=== PATIENT | male | born 1975 | race Caucasian/White ===

== ENCOUNTER 2016-07-19 16:28 | Emergency (ER) | payer OTHER ==
[~2016-07-19] VITALS: Ht 170.2 cm; Wt 83.1 kg
[~2016-07-19 16:28] MED LIST: ADVIN10/60 INH; ALBU1AER9 INH; CIPR-255 PO; DOXY100C2 PO; LXP10 PO; OMEP10CA2 PO; PHEN-1043 PO
[2016-07-19 16:42] VITALS: TEMP 36.9; Ht 170.2 cm; Wt 83.1 kg
[2016-07-19] MEDS ORDERED: SODIUM CHLORIDE 0.9% 1000ML 1,000 ML IV STA (16:59)
[2016-07-19] MEDS ORDERED: ONDANSETRON INJ 2 MG/ML 2 ML VIAL IV STA (16:59)
[2016-07-19] MEDS ORDERED: BSP/5 PO (17:11)
[2016-07-19] MEDS ORDERED: MTR500 PO (17:11)
[2016-07-19] MEDS ORDERED: OMEP40CA41 PO (17:11)
[2016-07-19] MEDS ORDERED: TADA5TAB11 PO (17:11)
[2016-07-19 17:15] LABS: MANUAL MICROSCOPIC REQUIRED? YES; URINE APPEARANCE CLEAR (CLEAR); URINE BILIRUBIN NEG (NEG); URINE COLOR YELLOW; URINE NITRITE NEG (NEG); URINE SPECIFIC GRAVITY >= 1.030 (1.000-1.030); UROBILINOGEN NEG (NEG)
[2016-07-19 17:15] LABS: BASO % 0.5 %; BASO ABS # 0.04 K/uL (0-0.2); COMPLETE YES; EOS % 0.9 %; HEMATOCRIT 44.4 % (42-52); IG% 0.5 %; LYMPH % 25.1 %; LYMPH ABS # 2.14 K/uL (1.2-3.4); MEAN CELL VOLUME 90.2 fL (80-100); MEAN CORPUSCULAR HEMOGLOBIN 31.5 pg (25-34); MEAN CORPUSCULAR HGB CONC 34.9 g/dl (32-36); MEAN PLATELET VOLUME 11.8 fL (7.4-10.4); MONO % 14.7 %; NEUT % 58.3 %; PLATELET COUNT 222 K/uL (130-400); RED BLOOD COUNT 4.92 M/uL (4.7-6.1); WHITE BLOOD COUNT 8.52 K/uL (4.8-10.8)
[2016-07-19 17:17] LABS: REVIEW REQ? NO
[2016-07-19 17:22] LABS: URINE BACTERIA NEG (NEG); URINE RBC 0-4 /hpf (0-4)
[2016-07-19 17:23] LABS: ZZUR CULT IF INDIC CLEAN CATCH NO
[2016-07-19 17:33] LABS: BUN/CREATININE RATIO 12.9 (10-20); CALCIUM 9.2 mg/dl (8.5-10.1); CREATININE 1.1 mg/dl (0.60-1.40); POTASSIUM 3.7 mmol/L (3.5-5.1)
[2016-07-19] MEDS ORDERED: OPTIRAY 320 IV PRN (19:15)
--- NOTE | 2016-07-19 20:30 | DIAGNOSTIC IMAGING REPORT ---
CT OF THE ABDOMEN AND PELVIS WITH CONTRAST CLINICAL HISTORY: Right lower quadrant abdominal pain. COMPARISON STUDY: CT of the abdomen and pelvis October 18, 2012 TECHNIQUE: Following IV administration of 116 mL of Optiray-320, axial images of the abdomen and pelvis were obtained from the lung bases to the proximal femurs. Images were reviewed in the axial, sagittal, and coronal planes. IV contrast was administered without complication. Oral contrast was administered. CT DOSE: 423.99 mGy.cm FINDINGS: Lung bases are clear. The liver, spleen, adrenal glands, kidneys and pancreas are normal. There is no biliary or pancreatic ductal dilatation. There is no evidence for a bowel obstruction. The appendix is normal. There are scattered colonic diverticula. There is suspected minimal infiltration adjacent to the distal sigmoid colon. There is no free air or abscess. IMPRESSION: 1. Normal appendix. 2. Possible minimal infiltration adjacent to the distal sigmoid colon with scattered colonic diverticula. The findings could reflect mild acute diverticulitis or a mild nonspecific colitis. No free air or abscess. Electronically signed by: Rosalio Drew M.D. 07/19/2016 8:28 PM Dictated Date/Time: 07/19/2016 8:20 PM
[2016-07-19 21:09] VITALS: BP 126/79; PULSE 62; O2SAT 99
--- NOTE | 2016-07-19 21:35 | EMERGENCY ROOM VISIT NOTE ---
History Report prepared by Sebastián: Andre Mcmahon Under the Supervision of: Dr. James Arenas D.O. First contact with patient: 16:45 Chief Complaint: ABDOMINAL PAIN Stated Complaint: PAIN IN SIDE Nursing Triage Summary: Pt reports RLQ pain. Pt started on Wed on the left. Seen at PCP on Wed or and given Cipro and Flagyl for ? Diverticulitis. Intermittent pain into right testicle. Generalized back pain. Denies n/v/d. Hx of kidney stones, does not feel similar. History of Present Illness The patient is a 40 year old male who presents to the Emergency Room with complaints of constant right sided abdominal pain beginning one day prior to arrival. He currently rates his discomfort as a 5/10 in severity. The patient associates abdominal pain that radiates to his back and intermittently once or twice into his right testicular. He states he was seen by a doctor four days ago with left sided abdominal pain and was diagnosed with diverticulitis. The patient notes he was placed on Cipro and Flagyl but his symptoms have no resolved. He states he is no longer experiencing left sided abdominal pain, but the discomfort as moved to the right side of his abdomen one day ago. The patient denies having imaging performed to diagnose his diverticulitis. He notes his last bowel movement was this morning, and it was normal. The patient notes a history of IBS but denies today's symptoms feeling similar to his IBS symptoms. He denies a history of abdominal surgeries, Crohn's Disease, and ulcerative colitis. Pt denies headache, change in vision, fevers, chest pain, shortness of breath, nausea, vomiting, diarrhea, pain with urination, penile discharge, testicular swelling, and melena. Source of History: patient Onset: one day [employer] Position: abdomen (right sided) Symptom Intensity: 5/10 Timing: constant Associated Symptoms: + back pain (abdominal pain that radiates to back) Note: Associated symptoms: intermittent right testicular pain. Review of Systems See HPI for pertinent positives & negatives. A total of 10 systems reviewed and were otherwise negative. Past Medical & Surgical Medical Problems: (1) Asthma (2) Kidney stones Family History Diabetes mellitus FH: cancer Hypertension Social History Smoking Status: Never Smoker Alcohol Use: none Marital Status: Housing Status: lives with family Occupation Status: employed Current/Historical Medications Scheduled Buspirone HCl (Buspirone HCl), 5 MG PO BID Ciprofloxacin Hcl (Cipro), 500 MG PO BID Metronidazole (Metronidazole), 500 MG PO BID Omeprazole (Prilosec), 40 MG PO DAILY Tadalafil (Cialis), 5 MG PO DAILY Scheduled PRN Albuterol Hfa (Ventolin Hfa), 2 PUFFS INH Q6 PRN for Shortness of Breath Allergies Coded Allergies: Naproxen (Verified Adverse Reaction, Unknown, Nausea., 07/19/16) Physical Exam Vital Signs Date Time Temp Pulse Resp B/P Pulse Ox O2 Delivery O2 Flow Rate FiO2 07/19/16 21:09 62 126/79 99 07/19/16 16:42 36.9 81 18 139/98 97 Room Air Physical Exam GENERAL: sitting up in bed, no acute distress, non-toxic EYE EXAM: normal conjunctiva OROPHARYNX: no exudate, no erythema, lips, buccal mucosa, and tongue normal and mucous membranes are moist NECK: supple, no nuchal rigidity, no adenopathy, non-tender LUNGS: Clear to auscultation. Normal chest wall mechanics HEART: no murmurs, S1 normal and S2 normal ABDOMEN: Minimal tenderness in right lower quadrant. Abdomen soft, normo-active bowel sounds, no masses, no rebound or guarding. BACK: Back is symmetrical on inspection and there is no deformity, no midline tenderness, no CVA tenderness. : Normal external circumcised genitalia. Testicles are nontender. No swelling. No appreciable hernias. SKIN: no rashes and no bruising UPPER EXTREMITIES: upper extremities are grossly normal. LOWER EXTREMITIES: No pitting edema. NEURO EXAM: Normal sensorium, cranial nerves II-XII grossly intact, normal speech, no gross weakness of arms, no gross weakness of legs. Medical Decision & Procedures ER Provider Diagnostic Interpretation: CT:Per my review, radiologist interpretation. CT OF THE ABDOMEN AND PELVIS WITH CONTRAST CLINICAL HISTORY: Right lower quadrant abdominal pain. COMPARISON STUDY: CT of the abdomen and pelvis October 18, 2012 TECHNIQUE: Following IV administration of 116 mL of Optiray-320, axial images of the abdomen and pelvis were obtained from the lung bases to the proximal femurs. Images were reviewed in the axial, sagittal, and coronal planes. IV contrast was administered without complication. Oral contrast was administered. CT DOSE: 423.99 mGy.cm FINDINGS: Lung bases are clear. The liver, spleen, adrenal glands, kidneys and pancreas are normal. There is no biliary or pancreatic ductal dilatation. There is no evidence for a bowel obstruction. The appendix is normal. There are scattered colonic diverticula. There is suspected minimal infiltration adjacent to the distal sigmoid colon. There is no free air or abscess. IMPRESSION: 1. Normal appendix. 2. Possible minimal infiltration adjacent to the distal sigmoid colon with scattered colonic diverticula. The findings could reflect mild acute diverticulitis or a mild nonspecific colitis. No free air or abscess. Electronically signed by: Rosalio Drew M.D. 07/19/2016 8:28 PM Laboratory Results 07/19/16 16:52 Red Blood Count 4.92, Mean Corpuscular Volume 90.2, Mean Corpuscular Hemoglobin 31.5, Mean Corpuscular Hemoglobin Concent 34.9, Mean Platelet Volume 11.8, Neutrophils (%) (Auto) 58.3, Lymphocytes (%) (Auto) 25.1, Monocytes (%) (Auto) 14.7, Eosinophils (%) (Auto) 0.9, Basophils (%) (Auto) 0.5, Neutrophils # (Auto ) 4.97, Lymphocytes # (Auto) 2.14, Monocytes # (Auto) 1.25, Eosinophils # (Auto ) 0.08, Basophils # (Auto) 0.04 07/19/16 16:52 Test 07/19/16 16:50 07/19/16 16:52 Urine Color YELLOW Urine Appearance CLEAR (CLEAR) Urine pH 5.0 (4.5-7.5) Urine Specific [place] >= 1.030 (1.000-1.030) Urine Protein TRACE (NEG) Urine Glucose (UA) NEG (NEG) Urine Ketones NEG (NEG) Urine Occult Blood NEG (NEG) Urine Nitrite NEG (NEG) Urine Bilirubin NEG (NEG) Urine Urobilinogen NEG (NEG) Urine Leukocyte Esterase NEG (NEG) Urine RBC 0-4 /hpf (0-4) Urine WBC 1-5 /hpf (0-5) Urine Epithelial Cells 10-20 /lpf (0-5) Urine Bacteria NEG (NEG) White Blood Count 8.52 K/uL (4.8-10.8) Red Blood Count 4.92 M/uL (4.7-6.1) Hemoglobin 15.5 g/dL (14.0-18.0) Hematocrit 44.4 % (42-52) Mean Corpuscular Volume 90.2 fL (80-100) Mean Corpuscular Hemoglobin 31.5 pg (25-34) Mean Corpuscular Hemoglobin Concent 34.9 g/dl (32-36) Platelet Count 222 K/uL (130-400) Mean Platelet Volume 11.8 fL (7.4-10.4) Neutrophils (%) (Auto) 58.3 % Lymphocytes (%) (Auto) 25.1 % Monocytes (%) (Auto) 14.7 % Eosinophils (%) (Auto) 0.9 % Basophils (%) (Auto) 0.5 % Neutrophils # (Auto) 4.97 K/uL (1.4-6.5) Lymphocytes # (Auto) 2.14 K/uL (1.2-3.4) Monocytes # (Auto) 1.25 K/uL (0.11-0.59) Eosinophils # (Auto) 0.08 K/uL (0-0.5) Basophils # (Auto) 0.04 K/uL (0-0.2) RDW Standard Deviation 44.5 fL (36.4-46.3) RDW Coefficient of Variation 13.4 % (11.5-14.5) Immature Granulocyte % (Auto) 0.5 % Immature Granulocyte # (Auto) 0.04 K/uL (0.00-0.02) Anion Gap 12.0 mmol/L (3-11) Est Creatinine Clear Calc Drug Dose 93.0 ml/min Estimated GFR () 97.5 Estimated GFR (Non- 84.1 BUN/Creatinine Ratio 12.9 (10-20) Calcium Level 9.2 mg/dl (8.5-10.1) Total Bilirubin 0.6 mg/dl (0.2-1) Direct Bilirubin 0.1 mg/dl (0-0.2) Aspartate Amino Transf (AST/SGOT) 39 U/L (15-37) Alanine Aminotransferase (ALT/SGPT) 54 U/L (12-78) Alkaline Phosphatase 94 U/L (45-117) Total Protein 8.4 gm/dl (6.4-8.2) Albumin 4.3 gm/dl (3.4-5.0) Lipase 201 U/L (73-393) Laboratory results per my review. Medications Administered Medications (Trade) Dose Ordered Sig/Ramírez Route Start Time Stop Time Status Last Admin Dose Admin Sodium Chloride (Nss 1000ml) 1,000 ml @ 999 mls/hr Q1H1M STAT IV 07/19/16 16:59 07/19/16 17:59 DC 07/19/16 17:07 999 MLS/HR Ondansetron HCl (Zofran Inj) 4 mg NOW STAT IV 07/19/16 16:59 07/19/16 17:00 DC 07/19/16 17:07 4 MG ED Course ED COURSE: Vital signs were reviewed and showed normal vitals. The patients medical record was reviewed The above diagnostic studies were performed and reviewed. ED treatments and interventions as stated above. 1650: The patient was evaluated in room C10. A complete history and physical examination was performed. 1658: Ordered Zofran Inj 4 mg IV, Sodium Chloride 1,000 ml @ 999 mls/hr IV. 2100: Upon reevaluation, the patient is doing well.I discussed my findings with the patient and he understands and agrees with the treatment plan. Based on the patients age, coexisting illnesses, exam and lab findings the decision to treat as an outpatient was made. The patient remained stable while under my care. The patient appeared well at the time of discharge. Medical Decision Differential diagnoses includes but is not limited to gastritis, peptic ulcer disease, GERD, gallbladder disease, pancreatitis, small bowel obstruction, acute coronary syndrome, pericarditis, ischemic bowel, irritable bowel disease, irritable bowel syndrome, appendicitis, diverticulitis, malignancy, hernia, urinary tract infection, torsion, perforation, trauma, infectious. Patient is a 40-year-old male who presents the ER with diffuse abdominal pain. He notes that it started in his left lower quadrant several days ago and now has moved to the right lower quadrant. At that time his diagnosis the family practice office called it diverticulitis. He was started on Cipro and Flagyl. He has taken a total of 4 days worth of antibiotics. Denies any nausea or vomiting. exam is benign. His abdominal exam is fairly benign as well. He declined any pain medications. He is given a bolus normal saline. CT of the abdomen and pelvis shows mild inflammation in the sigmoid suggesting possible resolving diverticulitis versus colitis. Updated the patient at bedside. Labs : CBC, BMP, LFTs and bilirubin were unremarkable. UA was negative. Patient was updated and was discharged follow-up with his primary care doctor and continue his antibiotics. Discussed with Pt concerning signs and symptoms to watch out for. Pt was instructed to follow up with their PCP and discussed with the patient their option to return to the ED at anytime for persistent or worsening symptoms. The appropriate anticipatory guidance and out-patient management, including indications for return to the emergency department, were explained at length to the patient and understood. Impression Primary Impression: Diverticulitis Additional Impression: Generalized abdominal pain Scribe Attestation The scribe's documentation has been prepared under my direction and personally reviewed by me in its entirety. I confirm that the note above accurately reflects all work, treatment, procedures, and medical decision making performed by me. Departure Information Dispostion Home / Self-Care Referrals Sunday Lauren III, M.D. (PCP) Forms Call Back Authorization, HOME CARE DOCUMENTATION FORM, IMPORTANT VISIT INFORMATION Patient Instructions ED Diverticulitis, [facility] Additional Instructions Please follow up with your primary care doctor with in the next 24 hours. Any worsening of your symptoms, please return to the ED immediately. This includes any fevers greater than 100.4, persistent nausea vomiting, worsening abdominal pain, or any other concerning signs or symptoms from your standpoint. Please continue your antibiotics as previously prescribed. Problem Qualifiers Primary Impression: Diverticulitis Diverticulitis site: large intestine Diverticulitis bleeding: without bleeding Diverticulitis complication: without perforation or abscess Qualified Codes: K57.32 - Diverticulitis of large intestine without perforation or abscess without bleeding
== END 2016-07-19 21:09 | disposition home or self-care (01) ==
LOC: C.EDB 16:29 → C.EDC 21:09
DX: K57.32 Diverticulitis of large intestine without perforation or abscess without bleeding (principal); R10.84 Generalized abdominal pain; J45.909 Unspecified asthma, uncomplicated; Z87.442 Personal history of urinary calculi; Z79.899 Other long term (current) drug therapy

== ENCOUNTER 2016-08-12 15:53 | Emergency (ER) | payer OTHER ==
[~2016-08-12] VITALS: Ht 170.2 cm; Wt 82.9 kg
[~2016-08-12 15:53] MED LIST changes: -ADVIN10/60 INH; -ALBU1AER9 INH; +BSP/5 PO; -DOXY100C2 PO; -LXP10 PO; +MTR500 PO; -OMEP10CA2 PO; +OMEP40CA41 PO; -PHEN-1043 PO; +TADA5TAB11 PO
[2016-08-12 15:56] VITALS: TEMP 36.9; Ht 170.2 cm; Wt 82.9 kg
[2016-08-12 16:23] LABS: BASO % 0.6 %; BASO ABS # 0.04 K/uL (0-0.2); COMPLETE YES; HEMATOCRIT 43.2 % (42-52); IG% 0.2 %; LYMPH % 39.1 %; LYMPH ABS # 2.41 K/uL (1.2-3.4); MEAN CELL VOLUME 87.4 fL (80-100); MEAN CORPUSCULAR HGB CONC 35.4 g/dl (32-36); MEAN PLATELET VOLUME 11.2 fL (7.4-10.4); MONO % 11.4 %; NEUT % 47.7 %; PLATELET COUNT 181 K/uL (130-400); RED BLOOD COUNT 4.94 M/uL (4.7-6.1); WHITE BLOOD COUNT 6.16 K/uL (4.8-10.8)
--- NOTE | 2016-08-12 16:30 | EMERGENCY ROOM VISIT NOTE ---
History First contact with patient: 16:01 Chief Complaint: CHEST PAIN Stated Complaint: CHEST PAIN, BANERJEE History of Present Illness The patient is a 40 year old male who presents to the Emergency Room with complaints of chest pain. The patient states that last night he felt pain in the Center of his chest. He states he was diaphoretic. He states he has had headache. He states the chest pain persists. He states he also has a headache. He rates his discomfort a 3/10. He denies any fevers or chills. He denies any abdominal pain, nausea or vomiting. He was recently seen here for diverticulitis. He has finished his course of Cipro and Flagyl. He denies any history of coronary artery disease. Review of Systems A 10 system review of systems was completed with positives and pertinent negatives listed in the HPI. Past Medical/Surgical History Medical Problems: (1) Asthma (2) Kidney stones Family History Diabetes mellitus FH: cancer Hypertension Social History Smoking Status: Never Smoker Alcohol Use: none Marital Status: Housing Status: lives with family Occupation Status: employed Current/Historical Medications Scheduled PRN Albuterol Hfa (Ventolin Hfa), 2 PUFFS INH Q6H PRN for Shortness of Breath Allergies Coded Allergies: Naproxen (Verified Adverse Reaction, Unknown, Nausea., 07/19/16) Physical Exam Vital Signs Date Time Temp Pulse Resp B/P Pulse Ox O2 Delivery O2 Flow Rate FiO2 08/12/16 17:46 75 18 146/91 98 Room Air 08/12/16 16:12 72 08/12/16 15:56 36.9 93 18 143/98 98 Room Air Physical Exam VITALS: Vitals are noted on the nurse's note and reviewed by myself. Vital signs stable. The patient is afebrile. He is not tachycardic, tachypneic or hypoxic. GENERAL: This is a 40-year-old male, in no acute distress, nondiaphoretic, well- developed well-nourished. SKIN: The skin was without edema, or bruising. There was a blotchy, macular, erythematous rash over the chest. There is no tenting of the skin. Capillary reflex less than 2 seconds. HEAD: Normocephalic atraumatic. EARS: The external ears are normal in appearance. EYES: Pupils equal round and reactive to light and accommodation. Conjunctivae without injection, sclerae without icterus. Extraocular movements intact. NOSE: Patent, turbinates without inflammation or discharge. MOUTH: Mucous membranes moist. Tonsils are not enlarged. Pharynx without erythema or exudate. Uvula midline. Airway patent. Tongue does not deviate. NECK: Supple without nuchal rigidity. No lymphadenopathy. No thyromegaly. Cervical spine is nontender. No JVD. HEART: Regular rate and rhythm without murmurs gallops or rubs. LUNGS: Clear to auscultation bilaterally without wheezes, rales or rhonchi. No retractions or accessory muscle use. ABDOMEN: Positive bowel sounds x 4. Soft, nontender, without masses or organomegaly. MUSCULOSKELETAL: No muscle atrophy, erythema, or edema noted. Full range of motion without joint tenderness in all extremities. No tenderness to palpation. Normal gait. Strength 5/5 throughout. NEURO: Patient was alert and oriented to person place and time. Normal sensation to light and sharp touch. Deep tendon reflexes 2+ throughout. No focal neurological deficits. Medical Decision & Procedures ER Provider Diagnostic Interpretation: SINGLE VIEW CHEST CLINICAL HISTORY: Atypical chest pain. FINDINGS: An AP, portable, upright chest radiograph is compared to study dated 10/18/2012. The examination is degraded by portable technique, apical lordotic positioning, and patient rotation. The cardiomediastinal silhouette is unremarkable. The lungs and pleural spaces are clear. No pneumothorax is seen. The bony thorax is grossly intact. IMPRESSION: No active disease in the chest. Laboratory Results 08/12/16 16:15 Red Blood Count 4.94, Mean Corpuscular Volume 87.4, Mean Corpuscular Hemoglobin 31.0, Mean Corpuscular Hemoglobin Concent 35.4, Mean Platelet Volume 11.2, Neutrophils (%) (Auto) 47.7, Lymphocytes (%) (Auto) 39.1, Monocytes (%) (Auto) 11.4, Eosinophils (%) (Auto) 1.0, Basophils (%) (Auto) 0.6, Neutrophils # (Auto ) 2.94, Lymphocytes # (Auto) 2.41, Monocytes # (Auto) 0.70, Eosinophils # (Auto ) 0.06, Basophils # (Auto) 0.04 08/12/16 16:15 Test 08/12/16 16:15 08/12/16 17:10 08/12/16 17:59 White Blood Count 6.16 K/uL (4.8-10.8) Red Blood Count 4.94 M/uL (4.7-6.1) Hemoglobin 15.3 g/dL (14.0-18.0) Hematocrit 43.2 % (42-52) Mean Corpuscular Volume 87.4 fL (80-100) Mean Corpuscular Hemoglobin 31.0 pg (25-34) Mean Corpuscular Hemoglobin Concent 35.4 g/dl (32-36) Platelet Count 181 K/uL (130-400) Mean Platelet Volume 11.2 fL (7.4-10.4) Neutrophils (%) (Auto) 47.7 % Lymphocytes (%) (Auto) 39.1 % Monocytes (%) (Auto) 11.4 % Eosinophils (%) (Auto) 1.0 % Basophils (%) (Auto) 0.6 % Neutrophils # (Auto) 2.94 K/uL (1.4-6.5) Lymphocytes # (Auto) 2.41 K/uL (1.2-3.4) Monocytes # (Auto) 0.70 K/uL (0.11-0.59) Eosinophils # (Auto) 0.06 K/uL (0-0.5) Basophils # (Auto) 0.04 K/uL (0-0.2) RDW Standard Deviation 41.7 fL (36.4-46.3) RDW Coefficient of Variation 13.0 % (11.5-14.5) Immature Granulocyte % (Auto) 0.2 % Immature Granulocyte # (Auto) 0.01 K/uL (0.00-0.02) Prothrombin Time 11.0 SECONDS (9.0-12.0) Prothromb Time International Ratio 1.0 (0.9-1.1) Activated Partial Thromboplast Time 26.4 SECONDS (21.0-31.0) Partial Thromboplastin Ratio 1.0 Anion Gap 10.0 mmol/L (3-11) Est Creatinine Clear Calc Drug Dose 102.2 ml/min Estimated GFR () 109.4 Estimated GFR (Non- 94.4 BUN/Creatinine Ratio 12.9 (10-20) Calcium Level 9.2 mg/dl (8.5-10.1) Total Bilirubin 1.0 mg/dl (0.2-1) Aspartate Amino Transf (AST/SGOT) 13 U/L (15-37) Alanine Aminotransferase (ALT/SGPT) 25 U/L (12-78) Alkaline Phosphatase 81 U/L (45-117) Total Creatine Kinase 72 U/L (39-308) Troponin I < 0.015 ng/ml (0-0.045) Total Protein 7.9 gm/dl (6.4-8.2) Albumin 4.1 gm/dl (3.4-5.0) Globulin 3.8 gm/dl (2.5-4.0) Albumin/Globulin Ratio 1.1 (0.9-2) Lipase 233 U/L (73-393) Urine Color YELLOW Urine Appearance CLEAR (CLEAR) Urine pH 8.0 (4.5-7.5) Urine Specific [place] 1.000 (1.000-1.030) Urine Protein NEG (NEG) Urine Glucose (UA) NEG (NEG) Urine Ketones NEG (NEG) Urine Occult Blood NEG (NEG) Urine Nitrite NEG (NEG) Urine Bilirubin NEG (NEG) Urine Urobilinogen NEG (NEG) Urine Leukocyte Esterase NEG (NEG) Bedside Troponin I 0.000 ng/ml (0-0.045) Medications Administered Medications (Trade) Dose Ordered Sig/Ramírez Route Start Time Stop Time Status Last Admin Dose Admin Lidocaine HCl (Viscous Lidocaine 2% Soln) 20 ml STK-MED ONCE .ROUTE 08/12/16 17:36 08/12/16 17:40 DC 08/12/16 17:36 20 ML Al Hydroxide/Mg Hydroxide (Maalox Susp) 30 ml STK-MED ONCE .ROUTE 08/12/16 17:36 08/12/16 17:40 DC 08/12/16 17:36 30 ML Procedure The patient was monitored on a monitoring analyst. They maintained a normal sinus rhythm without ectopy. ECG Indication: chest pain Rate (beats per minute): 74 Rhythm: normal sinus Findings: no acute ischemic change Change: no significant change ED Course The patient was seen and examined. Previous visits were reviewed. The patient does not have a fever or leukocytosis. He does not have any significant electrolyte abnormalities. Initial and repeat troponin were not elevated. Lipase was not elevated. INR was 1.0. Urinalysis does not reveal any significant abnormality. Chest x-ray was unremarkable The patient initially had a macular blotchy erythematous rash in his chest. This was likely secondary to being overheated or anxiety as it had completely's old. He states he often gets a rash like this when he is warm. The patient presents with retrosternal and epigastric pain. The above workup does not reveal any significant abnormality. His pain has been persistent since last night but there is no elevation in initial or 90 minute troponins. EKG does not reveal any acute arrhythmia or ischemia. The patient was given a GI cocktail and his symptoms improved. He does have a history of GERD and takes Prilosec. He is encouraged to try Zantac as well. He should recheck with his family doctor. He should return to the emergency Department with any worsening symptoms. The case was discussed with Dr. Arenas who agrees with the assessment and treatment plan Medical Decision DIFFERENTIAL DIAGNOSIS: Aortic dissection, myocarditis, pericarditis, cervical disc disease, costochondritis, herpes zoster, rib fracture, pleuritis, pneumonia , pulmonary embolus, tension pneumothorax, anxiety disorder, somatoform disorder , choledocholithiasis, status, esophagitis, esophageal spasm, esophageal reflux , esophageal rupture, pancreatitis, peptic ulcer disease, cardiac ischemia, ST elevation IA, acute coronary syndrome, arrhythmia, coronary artery vasospasm. vavular heart disease, coronary artery disease, among others. Impression Primary Impression: Substernal precordial chest pain Departure Information Dispostion Home / Self-Care Condition GOOD Referrals Sunday Lauren III, M.D. (PCP) Patient Instructions Chest Pain - [facility], [facility] Additional Instructions Continue your Prilosec You may also try Zantac 150 daily in addition to the Prilosec the next 7-10 days Contact your family doctor to schedule a follow-up appointment for further evaluation and management Return with any worsening symptoms
--- NOTE | 2016-08-12 16:35 | DIAGNOSTIC IMAGING REPORT ---
SINGLE VIEW CHEST CLINICAL HISTORY: Atypical chest pain. FINDINGS: An AP, portable, upright chest radiograph is compared to study dated 10/18/2012. The examination is degraded by portable technique, apical lordotic positioning, and patient rotation. The cardiomediastinal silhouette is unremarkable. The lungs and pleural spaces are clear. No pneumothorax is seen. The bony thorax is grossly intact. IMPRESSION: No active disease in the chest. Electronically signed by: Steven Jean Baptiste M.D. 08/12/2016 4:34 PM Dictated Date/Time: 08/12/2016 4:33 PM
[2016-08-12] MEDS ORDERED: VNTHFA/IN INH (17:11)
[2016-08-12 17:18] LABS: BLOOD UREA NITROGEN 13 mg/dl (7-18); BUN/CREATININE RATIO 12.9 (10-20); CALCIUM 9.2 mg/dl (8.5-10.1); CARBON DIOXIDE 26 mmol/L (21-32); CHLORIDE 104 mmol/L (98-107); GLUCOSE 98 mg/dl (70-99); POTASSIUM 3.6 mmol/L (3.5-5.1); SODIUM 140 mmol/L (136-145)
[2016-08-12 17:22] LABS: ALB/GLOB RATIO 1.1 (0.9-2); ALKALINE PHOSPHATASE 81 U/L (45-117); ALT/SGPT 25 U/L (12-78); AST/SGOT 13 U/L (15-37)
[2016-08-12] MEDS ORDERED: GI COCKTAIL PO STA (17:35)
[2016-08-12] MEDS ORDERED: ALUMINUM/MAGNESIUM SUSP 30 ML UDC ONE (17:36)
[2016-08-12] MEDS ORDERED: LIDOCAINE HCL 2% VISC SOLN 20 ML UDC ONE (17:36)
[2016-08-12 17:46] VITALS: BP 146/91; PULSE 75; O2SAT 98
[2016-08-12 18:01] LABS: URINE APPEARANCE CLEAR (CLEAR); URINE BILIRUBIN NEG (NEG); URINE COLOR YELLOW; URINE NITRITE NEG (NEG); UROBILINOGEN NEG (NEG); ZZUR CULT IF INDIC CLEAN CATCH NO
[2016-08-12 18:15] LABS: MANUAL MICROSCOPIC REQUIRED? NO; REVIEW REQ? NO
== END 2016-08-12 18:20 | disposition home or self-care (01) ==
LOC: C.EDB 15:55 → C.EDC 18:20
DX: R07.2 Precordial pain (principal); J45.909 Unspecified asthma, uncomplicated; Z87.442 Personal history of urinary calculi; Z88.8 Allergy status to other drugs, medicaments and biological substances; Z83.3 Family history of diabetes mellitus; Z80.9 Family history of malignant neoplasm, unspecified; Z82.49 Family history of ischemic heart disease and other diseases of the circulatory system

== ENCOUNTER 2016-08-24 19:04 | Emergency (ER) | payer OTHER ==
[~2016-08-24] VITALS: Ht 170.2 cm; Wt 82.9 kg
[~2016-08-24 19:04] MED LIST changes: -BSP/5 PO; -CIPR-255 PO; -MTR500 PO; -OMEP40CA41 PO; -TADA5TAB11 PO; +VNTHFA/IN INH
[2016-08-24 19:20] VITALS: BP 155/95; PULSE 89; TEMP 36.3; O2SAT 96; Ht 170.2 cm; Wt 82.9 kg
== END 2016-08-24 19:25 | disposition left against medical advice (07) ==
LOC: C.EDB 19:05
DX: K92.1 Melena (principal)

== ENCOUNTER 2016-12-31 16:59 | Emergency (ER) | payer OTHER ==
[~2016-12-31] VITALS: Ht 172.7 cm; Wt 79.3 kg
[2016-12-31 17:03] VITALS: TEMP 36.7; Ht 172.7 cm; Wt 79.3 kg
[2016-12-31] MEDS ORDERED: MoRPHine SULFATE 4 MG/ML 1 ML CARP\\VIAL IV STA (17:11)
[2016-12-31] MEDS ORDERED: SODIUM CHLORIDE 0.9% 1000ML 1,000 ML IV STA (17:11)
[2016-12-31] MEDS ORDERED: ONDANSETRON INJ 2 MG/ML 2 ML VIAL IV STA (17:11)
--- NOTE | 2016-12-31 17:16 | EMERGENCY ROOM VISIT NOTE ---
History First contact with patient: 17:04 Chief Complaint: ABDOMINAL PAIN Stated Complaint: AB CRAMPING, DIARRHEA, RECTAL BLEEDING Nursing Triage Summary: Patient arrived via BLS from home. Patient had tooth ache, supposed to go to dentist for today. Last night starting around 1 am had diarrhea that turned into bright, red blood today. Patient states, "I might have ate some bad chicken and I fed it to my dog and he god sick". Patient has hx of diverticulitis and is on medication. Patient had colonoscopy 4 weeks ago. Patient c/o 6/10 LLQ abdominal pain. Had nausea this AM. Denies vomitting. History of Present Illness The patient is a 41 year old male who presents to the Emergency Room via ambulance with complaints of "abdominal cramping, diarrhea, rectal bleeding". The patient states that last night around 1- 2 AM, he woke with a toothache, followed by left lower quadrant abdominal pain followed by diarrhea, and then blood in the stool with persistent left lower quadrant cramping. He states that he's never had this before, but does have a history of diverticulitis that feel similar. He rates left lower quadrant pain is a 67/10. He has not had anything for pain thus far. There was minimal nausea this morning. He also states he was to see a dentist today, for a right upper tooth pain. There is been no discharge or swelling from this area. He denies any urinary symptoms, recent antibiotic use, chest pain, shortness of breath, fevers, chills. He does state that he ate grilled chicken last night, and also fed this to his dog who had diarrhea. He denies any rectal pain. Review of Systems A complete 10-point Review of Systems was discussed with the patient, with pertinent positives and negatives listed in the History of Present Illness. All remaining Review of Systems questions can be considered negative unless otherwise specified. Past Medical/Surgical History Medical Problems: (1) Asthma (2) Kidney stones Family History Diabetes mellitus FH: cancer Hypertension Social History Smoking Status: Never Smoker Alcohol Use: none Marital Status: Housing Status: lives with family Occupation Status: employed Current/Historical Medications Scheduled Amoxicillin & Pot Clavulanate (Augmentin 875-125 mg), 1 TAB PO BID Ranitidine Hcl (Zantac), 300 MG PO HS Scheduled PRN Albuterol Hfa (Ventolin Hfa), 2 PUFFS INH Q6H PRN for Shortness of Breath Dicyclomine HCl (Dicyclomine HCl), 20 MG PO TID PRN for GI Upset Oxycodone Ir (Roxicodone Ir), 1-2 TAB PO Q4H PRN for Pain Allergies Coded Allergies: Propofol (Unverified Allergy, Unknown, FEVER/SHAKES, 12/31/16) Naproxen (Verified Adverse Reaction, Unknown, Nausea., 12/31/16) Physical Exam Vital Signs Date Time Temp Pulse Resp B/P (MAP) Pulse Ox O2 Delivery O2 Flow Rate FiO2 12/31/16 22:46 65 18 144/99 96 12/31/16 21:31 68 18 168/100 98 Room Air 12/31/16 18:54 62 16 139/89 99 Room Air 12/31/16 17:35 97 Room Air 12/31/16 17:25 64 12/31/16 17:03 36.7 73 18 159/98 97 Room Air Physical Exam VITAL SIGNS - Vital signs and nursing notes were reviewed. Stable, and hypertensive. GENERAL -41-year-old male appearing his stated age who is in no acute distress. Communicates well with provider and answers questions appropriately. SKIN - Without rashes. No petechial rashes. HEAD - NC/AT. EYES - PERRL with EOMI bilaterally. Sclera anicteric. Palpebral conjunctiva pink and moist with no injection noted. EARS - No deformities of external structures noted on gross examination bilaterally. No pain elicited with palpation of the tragus bilaterally. External auditory canals without discharge or otorrhea. Tympanic membranes pearly foster without retraction or bulging. No fluid or purulent material visualized behind the TM. Handle of malleus, umbo, cone of light, pars tensa/ flaccid all easily visualized. NOSE - Midline and without cyanosis. No epistaxis or purulent drainage noted. Septum midline without deviation or septal hematoma noted. MOUTH/OROPHARYNX - Without perioral cyanosis. Buccal mucosa pink and moist and without leukoplakia. Tongue midline with equal elevation of palate bilaterally. No tonsillar hypertrophy, erythema, or exudates noted. Fair dentition noted. No erythema or edema. NECK - Neck with FROM. Supple to palpation. No meningismus. LUNGS - Chest wall symmetric without accessory muscle use, intercostals retractions, or central cyanosis. Normal vesicular breath sounds CTA B/L. No wheezes, rales, or rhonchi appreciated. CARDIAC - RRR with S1/S2. No murmur, rubs, or gallops appreciated. ABDOMEN - Abdominal contour without pulsations or visible masses. BS normoactive all four quadrants. There is left lower quadrant tenderness. No palpable masses, hepatosplenomegaly, or ascites noted. EXTREMITIES - No clubbing or peripheral cyanosis. No pretibial edema present. + 5/5 strength noted in UE/LE bilaterally. NEUROLOGIC - Cranial nerves II through XII grossly intact. Sensory intact to light touch throughout. PSYCH - A&O. Pt is very pleasant and interacts well with examiner. Medical Decision & Procedures ER Provider Diagnostic Interpretation: ABD/PELVIS IV AND ORAL CONT HISTORY: 41 years-old Male LLQ abdominal pain, blood in stool COMPARISON: CT 07/19/2016 TECHNIQUE: Multiple axial CT images of the abdomen and pelvis were obtained following the intravenous administration of 119 mL Optiray 320. Oral contrast was also used. FINDINGS: There is minimal dependent bibasilar atelectasis. No pneumoperitoneum. Inferior cardiac chambers are unremarkable. There are 2 nonspecific low attenuating subcentimeter lesions of the right hepatic lobe noted measuring up to 6 mm. Statistically these would be benign. Spleen, gallbladder, pancreas and adrenal glands are normal. Low attenuating lesion of the interpolar right kidney measuring 4 mm suggests cyst. There is a nonobstructing 4 mm calculus of the inferior pole right kidney. Urinary bladder and prostate appear normal. The abdominal aorta is normal in course and caliber. There is no bulky adenopathy. There is no bowel obstruction. There is wall thickening with surrounding inflammatory stranding involving the mid transverse colon extending to the level of the distal descending colon without definite inflamed diverticuli seen within this distribution. There are noninflamed diverticuli of the sigmoid colon. The appendix is contrast-filled and appears noninflamed. Soft tissues are unremarkable. Bones are intact. IMPRESSION: 1. Moderate wall thickening with surrounding inflammatory stranding involves the colon extending from the mid transverse to the distal descending colon suggesting infectious or inflammatory colitis. 2. No bowel obstruction. 3. Normal appendix. The above report was generated using voice recognition software. It may contain grammatical, syntax or spelling errors. Electronically signed by: Shmuel Harrell M.D. 12/31/2016 9:16 PM Dictated Date/Time: 12/31/2016 9:11 PM Laboratory Results 12/31/16 17:31 Red Blood Count 5.12, Mean Corpuscular Volume 90.0, Mean Corpuscular Hemoglobin 31.6, Mean Corpuscular Hemoglobin Concent 35.1, Mean Platelet Volume 11.7, Neutrophils (%) (Auto) 65.9, Lymphocytes (%) (Auto) 20.6, Monocytes (%) (Auto) 12.3, Eosinophils (%) (Auto) 0.8, Basophils (%) (Auto) 0.3, Neutrophils # (Auto ) 4.86, Lymphocytes # (Auto) 1.52, Monocytes # (Auto) 0.91, Eosinophils # (Auto ) 0.06, Basophils # (Auto) 0.02 12/31/16 17:31 Test 12/31/16 17:30 12/31/16 17:31 Urine Color YELLOW Urine Appearance CLEAR (CLEAR) Urine pH 5.5 (4.5-7.5) Urine Specific [place] 1.018 (1.000-1.030) Urine Protein NEG (NEG) Urine Glucose (UA) NEG (NEG) Urine Ketones TRACE (NEG) Urine Occult Blood NEG (NEG) Urine Nitrite NEG (NEG) Urine Bilirubin NEG (NEG) Urine Urobilinogen NEG (NEG) Urine Leukocyte Esterase NEG (NEG) White Blood Count 7.38 K/uL (4.8-10.8) Red Blood Count 5.12 M/uL (4.7-6.1) Hemoglobin 16.2 g/dL (14.0-18.0) Hematocrit 46.1 % (42-52) Mean Corpuscular Volume 90.0 fL (80-100) Mean Corpuscular Hemoglobin 31.6 pg (25-34) Mean Corpuscular Hemoglobin Concent 35.1 g/dl (32-36) Platelet Count 194 K/uL (130-400) Mean Platelet Volume 11.7 fL (7.4-10.4) Neutrophils (%) (Auto) 65.9 % Lymphocytes (%) (Auto) 20.6 % Monocytes (%) (Auto) 12.3 % Eosinophils (%) (Auto) 0.8 % Basophils (%) (Auto) 0.3 % Neutrophils # (Auto) 4.86 K/uL (1.4-6.5) Lymphocytes # (Auto) 1.52 K/uL (1.2-3.4) Monocytes # (Auto) 0.91 K/uL (0.11-0.59) Eosinophils # (Auto) 0.06 K/uL (0-0.5) Basophils # (Auto) 0.02 K/uL (0-0.2) RDW Standard Deviation 42.3 fL (36.4-46.3) RDW Coefficient of Variation 12.8 % (11.5-14.5) Immature Granulocyte % (Auto) 0.1 % Immature Granulocyte # (Auto) 0.01 K/uL (0.00-0.02) Prothrombin Time 10.9 SECONDS (9.0-12.0) Prothromb Time International Ratio 1.0 (0.9-1.1) Activated Partial Thromboplast Time 26.6 SECONDS (21.0-31.0) Partial Thromboplastin Ratio 1.0 Anion Gap 8.0 mmol/L (3-11) Est Creatinine Clear Calc Drug Dose 86.3 ml/min Estimated GFR () 96.8 Estimated GFR (Non- 83.5 BUN/Creatinine Ratio 12.5 (10-20) Calcium Level 9.0 mg/dl (8.5-10.1) Magnesium Level 2.2 mg/dl (1.8-2.4) Total Bilirubin 0.9 mg/dl (0.2-1) Aspartate Amino Transf (AST/SGOT) 17 U/L (15-37) Alanine Aminotransferase (ALT/SGPT) 25 U/L (12-78) Alkaline Phosphatase 88 U/L (45-117) Total Protein 7.7 gm/dl (6.4-8.2) Albumin 4.3 gm/dl (3.4-5.0) Globulin 3.4 gm/dl (2.5-4.0) Albumin/Globulin Ratio 1.3 (0.9-2) Medications Administered Medications (Trade) Dose Ordered Sig/Ramírez Route Start Time Stop Time Status Last Admin Dose Admin Sodium Chloride 1,000 ml @ 999 mls/hr Q1H1M STAT IV 12/31/16 17:11 12/31/16 18:11 DC 12/31/16 17:42 999 MLS/HR Morphine Sulfate (MoRPHine SULFATE INJ) 4 mg NOW STAT IV 12/31/16 17:11 12/31/16 17:13 DC 12/31/16 17:43 4 MG Ondansetron HCl (Zofran Inj) 4 mg NOW STAT IV 12/31/16 17:11 12/31/16 17:13 DC 12/31/16 17:42 4 MG Hydromorphone HCl (Dilaudid Inj) 1 mg NOW STAT IV 12/31/16 21:35 12/31/16 21:36 DC 12/31/16 21:49 1 MG Oxycodone HCl (Roxicodone Immediate Rel 5MG Home Pack) 1 homepack UD STAT PO 12/31/16 22:08 12/31/16 22:09 DC 12/31/16 22:38 1 HOMEPACK Amoxicillin/ Clavulanate Potassium (Augmentin 875MG Home Pack) 1 homepack UD STAT PO 12/31/16 22:08 12/31/16 22:09 DC 12/31/16 22:37 1 HOMEPACK Medical Decision Patient was seen and evaluated as above. After obtaining a thorough history and physical examination IV access was initiated, and the above workup was performed. Patient presents to us today with what appears to be left lower quadrant pain, blood in the stool after eating chicken yesterday, but also has a history of diverticulitis. I believe CT scanning is warranted. He was given morphine and Zofran for pain and nausea. He is reevaluated, pain persisted therefore was given Dilaudid for his pain. He was hydrated with 1 L of normal saline. CBC reveals no leukocytosis or concerning anemia. Coag studies unremarkable. CMP unremarkable. Urine unremarkable other than trace ketones. Patient has not had any food today. CT scan reveals colitis. There is a stool culture pending. At this time I will place him upon Augmentin, for broad- spectrum coverage, pending the culture results. Benefits versus risk of starting Cipro was discussed, and the decision was made to pursue with the Augmentin. Case was discussed with my attending. Patient feels stable for outpatient management, and verbalizes understanding. He was educated upon worrisome symptoms which to return, had questions prior to discharge, and was discharged home in good condition. He is to call his family doctor first thing tomorrow morning and schedule follow-up regarding his visit, as well as for the incidental findings of which were thoroughly discussed with him on his CT scan today. He'll be given a short course of OxyIR for his pain. He is to start with a liquid, then bland diet. In the evaluation and treatment of this patient following differential diagnoses were entertained: Obstruction, ulcerative colitis, Crohn's, food poisoning, diverticulitis, perforation, appendicitis, among others. [place] Drug Monitoring Program Search Results: patient reviewed within database, no issues identified Impression Primary Impression: Colitis Departure Information Dispostion Home / Self-Care Condition GOOD Prescriptions Oxycodone Ir (Roxicodone Ir) 5 Mg Tab 1-2 TAB PO Q4H Y for Pain, #20 TAB For Initial Treatment Prov: Luke Tijerina PA-C 12/31/16 Amoxicillin & Pot Clavulanate (Augmentin 875-125 mg) 1 Tab Tab 1 TAB PO BID, #18 TAB Prov: Luke Tijerina PA-C 12/31/16 Referrals Sunday Lauren III, M.D. (PCP) Patient Instructions My [facility] Additional Instructions You have been treated in the Emergency Department your Abdominal Pain. Laboratory results and imaging studies have ruled out any emergent causes for your abdominal pain which would warrant admission or surgery. At this time you have colitis which is inflammation of your bowel. You have been prescribed OxyIR to be used for pain control. This is a narcotic medication. You cannot drive or consume alcohol while on this medicine. This medicine should only be used for pain that cannot be controlled with over-the- counter pain medicines. You have been sent home with the first 24 supply. Remainders at the pharmacy. You've been prescribed Augmentin to help treat any bacterial causes we discussed. This is one tablet every 12 hours for the next 10 days. You have been sent home with the first 24 hour supply. Remainder at the pharmacy. For pain control, you can use the following [id number] medicines (if >12 yo): - Regular strength (325mg/tab) Tylenol (acetaminophen) 2 tabs every 4-6 hours as needed. Do not exceed 12 tablets in a 24 hour period. Avoid taking more than 3 grams (3000 mg) of Tylenol per day. This includes any other sources of acetaminophen you may take on a regular basis. For the first day please drink a clear liquid diet, and then progress to bananas , rice, applesauce and foods like toast. You may then slowly progress to a normal diet. Drink plenty of water and stay well hydrated. As with any trip to the Emergency Department, you should follow-up with your Primary Care Provider from today's visit. Return to the emergency department if your symptoms persist despite treatment plan outlined above or if the following symptoms occur: increased fevers, chills , worsening nausea/vomiting, worsening blood in your stool or urine. Please return to the emergency department with any new/concerning symptoms.
[2016-12-31] MEDS ORDERED: DICY1TAB25 PO (17:32)
[2016-12-31] MEDS ORDERED: RANI300T PO (17:32)
[2016-12-31 17:35] VITALS: O2SAT 97
[2016-12-31 17:43] LABS: URINE APPEARANCE CLEAR (CLEAR); URINE BILIRUBIN NEG (NEG); URINE COLOR YELLOW; URINE NITRITE NEG (NEG); URINE PH 5.5 (4.5-7.5); URINE SPECIFIC GRAVITY 1.018 (1.000-1.030); UROBILINOGEN NEG (NEG); ZZUR CULT IF INDIC CLEAN CATCH NO
[2016-12-31 17:46] LABS: MANUAL MICROSCOPIC REQUIRED? NO; REVIEW REQ? NO
[2016-12-31 17:58] LABS: BASO % 0.3 %; BASO ABS # 0.02 K/uL (0-0.2); COMPLETE YES; EOS % 0.8 %; HEMATOCRIT 46.1 % (42-52); IG% 0.1 %; LYMPH % 20.6 %; LYMPH ABS # 1.52 K/uL (1.2-3.4); MEAN CORPUSCULAR HEMOGLOBIN 31.6 pg (25-34); MEAN CORPUSCULAR HGB CONC 35.1 g/dl (32-36); MEAN PLATELET VOLUME 11.7 fL (7.4-10.4); MONO % 12.3 %; NEUT % 65.9 %; PLATELET COUNT 194 K/uL (130-400); RED BLOOD COUNT 5.12 M/uL (4.7-6.1); WHITE BLOOD COUNT 7.38 K/uL (4.8-10.8)
[2016-12-31 18:08] LABS: PROTHROMBIN TIME (PATIENT) 10.9 SECONDS (9.0-12.0)
[2016-12-31 18:21] LABS: BUN/CREATININE RATIO 12.5 (10-20); CREATININE 1.1 mg/dl (0.60-1.40); MAGNESIUM 2.2 mg/dl (1.8-2.4); POTASSIUM 3.9 mmol/L (3.5-5.1)
[2016-12-31 18:24] LABS: ALB/GLOB RATIO 1.3 (0.9-2)
[2016-12-31] MEDS ORDERED: OPTIRAY 320 IV PRN (19:15)
--- NOTE | 2016-12-31 21:17 | DIAGNOSTIC IMAGING REPORT ---
ABD/PELVIS IV AND ORAL CONT HISTORY: 41 years-old Male LLQ abdominal pain, blood in stool COMPARISON: CT 07/19/2016 TECHNIQUE: Multiple axial CT images of the abdomen and pelvis were obtained following the intravenous administration of 119 mL Optiray 320. Oral contrast was also used. FINDINGS: There is minimal dependent bibasilar atelectasis. No pneumoperitoneum. Inferior cardiac chambers are unremarkable. There are 2 nonspecific low attenuating subcentimeter lesions of the right hepatic lobe noted measuring up to 6 mm. Statistically these would be benign. Spleen, gallbladder, pancreas and adrenal glands are normal. Low attenuating lesion of the interpolar right kidney measuring 4 mm suggests cyst. There is a nonobstructing 4 mm calculus of the inferior pole right kidney. Urinary bladder and prostate appear normal. The abdominal aorta is normal in course and caliber. There is no bulky adenopathy. There is no bowel obstruction. There is wall thickening with surrounding inflammatory stranding involving the mid transverse colon extending to the level of the distal descending colon without definite inflamed diverticuli seen within this distribution. There are noninflamed diverticuli of the sigmoid colon. The appendix is contrast-filled and appears noninflamed. Soft tissues are unremarkable. Bones are intact. IMPRESSION: 1. Moderate wall thickening with surrounding inflammatory stranding involves the colon extending from the mid transverse to the distal descending colon suggesting infectious or inflammatory colitis. 2. No bowel obstruction. 3. Normal appendix. The above report was generated using voice recognition software. It may contain grammatical, syntax or spelling errors. Electronically signed by: Shmuel Harrell M.D. 12/31/2016 9:16 PM Dictated Date/Time: 12/31/2016 9:11 PM
[2016-12-31] MEDS ORDERED: HYDROmorphone INJ 1 MG/ML SYR IV STA (21:35)
[2016-12-31] MEDS ORDERED: AMOXICIL/CLAVU 875MG HOME PACK PO STA (22:08)
[2016-12-31] MEDS ORDERED: OXYCODONE IR HOME PACK PO STA (22:08)
[2016-12-31] MEDS ORDERED: AMOX875T PO (22:10)
[2016-12-31] MEDS ORDERED: OXYC1TAB3 PO (22:10)
[2016-12-31 22:46] VITALS: BP 144/99; PULSE 65; O2SAT 96
== END 2016-12-31 22:47 | disposition home or self-care (01) ==
LOC: EDBD 16:59 → C.EDB 17:01
DX: K52.9 Noninfective gastroenteritis and colitis, unspecified (principal); K57.92 Diverticulitis of intestine, part unspecified, without perforation or abscess without bleeding; J45.909 Unspecified asthma, uncomplicated; Z87.442 Personal history of urinary calculi; Z88.8 Allergy status to other drugs, medicaments and biological substances; Z83.3 Family history of diabetes mellitus; Z80.9 Family history of malignant neoplasm, unspecified; Z82.49 Family history of ischemic heart disease and other diseases of the circulatory system

== ENCOUNTER 2017-08-19 16:35 | Emergency (ER) | payer OTHER ==
[~2017-08-19] VITALS: Ht 170.2 cm; Wt 84.0 kg
[~2017-08-19 16:35] MED LIST changes: +DICY1TAB25 PO; +RANI300T PO
[2017-08-19 16:42] VITALS: TEMP 37.2; Ht 170.2 cm; Wt 84.0 kg
[2017-08-19] MEDS ORDERED: ACETAMINOPHEN IV 1,000 MG in EMPTY BAG 0 ML IV STA (16:51)
[2017-08-19] MEDS ORDERED: OPTIRAY 320 IV PRN (17:00)
[2017-08-19] MEDS ORDERED: ACETAMINOPHEN 1000 MG/100 ML IV IV ONE (17:05)
[2017-08-19 17:10] LABS: BASO % 0.2 %; BASO ABS # 0.03 K/uL (0-0.2); EOS % 0.2 %; EOS ABS # 0.03 K/uL (0-0.5); HEMATOCRIT 41.1 % (42-52); HEMOGLOBIN 14.1 g/dL (14.0-18.0); IG# 0.03 K/uL (0.00-0.02); LYMPH % 12.8 %; LYMPH ABS # 1.66 K/uL (1.2-3.4); MEAN CELL VOLUME 90.5 fL (80-100); MEAN CORPUSCULAR HEMOGLOBIN 31.1 pg (25-34); MEAN CORPUSCULAR HGB CONC 34.3 g/dl (32-36); MEAN PLATELET VOLUME 11.2 fL (7.4-10.4); MONO % 14.6 %; MONO ABS # 1.89 K/uL (0.11-0.59); NEUT ABS # 9.31 K/uL (1.4-6.5); PLATELET COUNT 195 K/uL (130-400); RED CELL DISTRIBUTION WIDTH CV 13.8 % (11.5-14.5); WHITE BLOOD COUNT 12.95 K/uL (4.8-10.8)
[2017-08-19 17:18] LABS: ALBUMIN 3.8 gm/dl (3.4-5.0); CALCIUM 8.8 mg/dl (8.5-10.1); CREATININE 1.13 mg/dl (0.60-1.40); POTASSIUM 3.7 mmol/L (3.5-5.1)
[2017-08-19 17:21] LABS: TOTAL PROTEIN 7.9 gm/dl (6.4-8.2)
[2017-08-19] MEDS ORDERED: BUDE1SUS6 NEB (18:28)
--- NOTE | 2017-08-19 18:28 | DIAGNOSTIC IMAGING REPORT ---
CT SCAN OF THE ABDOMEN AND PELVIS WITH IV CONTRAST CLINICAL HISTORY: Generalized abdominal pain. COMPARISON STUDY: Abdominal CT dated 12/31/2016. TECHNIQUE: Following the IV administration of 94 cc of Optiray 320, CT scan of the abdomen and pelvis is performed from the lung bases to the proximal femora. Images are reviewed in the axial, sagittal, and coronal planes. IV contrast was administered without complication. A dose lowering technique was utilized adhering to the principles of ALARA. CT DOSE: 476.82 mGy.cm FINDINGS: Lung bases: The heart is normal in size and without pericardial effusion. The lung bases are clear. There is a tiny hiatal hernia. Liver: The contrast-enhanced liver is normal in size, contour, and attenuation. There is no intrahepatic biliary ductal dilatation. The hepatic veins and portal veins are patent. Gallbladder: Unremarkable. Spleen: Normal in size and attenuation. Pancreas: Unremarkable. Adrenal glands: Unremarkable. Kidneys: The contrast enhanced kidneys are normal in size and without hydronephrosis. The kidneys enhance symmetrically. There is a 3 mm nonobstructing right renal calculus. Abdominal vasculature: The abdominal aorta is normal in course and caliber. Bowel: There is mild sigmoid diverticulosis. There is significant wall thickening with pericolonic inflammation and fluid identified around the proximal sigmoid colon in the upper pelvis consistent with acute diverticulitis. There is no organized fluid collection seen to suggest abscess. This is best seen on axial image #302. No bowel obstruction is seen. The appendix is well-visualized and normal. Peritoneum: There is no intraperitoneal free air or abdominal ascites. There is a small fat-containing umbilical hernia. Lymphadenopathy: None. Pelvic viscera: The bladder, prostate, and seminal vesicles are normal as visualized. Skeletal structures: No lytic or blastic lesions are seen. IMPRESSION: 1. There is mild sigmoid diverticulosis with evidence of acute sigmoid diverticulitis. No intraperitoneal free air is identified and there is no evidence of abscess. 2. Nonobstructing right renal calculus. Electronically signed by: Steven Jean Baptiste M.D. 08/19/2017 6:26 PM Dictated Date/Time: 08/19/2017 6:22 PM
--- NOTE | 2017-08-19 18:34 | EMERGENCY ROOM VISIT NOTE ---
History First contact with patient: 16:40 Chief Complaint: ABDOMINAL PAIN Stated Complaint: ABD PAIN Nursing Triage Summary: patient to ED via EMS, bilateral lower abdominal pain since wednesday, states "I saw GI for it this morning and they diagnosed me diverticulosis, gave me abx but nothing for pain." History of Present Illness The patient is a 41 year old male who presents to the Emergency Room via EMS with complaints of lower abdominal pain. The patient states that the pain started on the lower abdomen on Wednesday and has been getting progressively worse. The patient also admits to fever. He states he had a temperature of 101.3 this morning pain. The patient denies any nausea or vomiting or any change in bowel habits. The patient denies any urinary symptoms of frequency, urgency, dysuria or hematuria. The patient does have a history of kidney stones as well as diverticulitis. He states he went to Dr. Villegas this morning who placed him on antibiotics for 5 days for diverticulosis. The patient states he did not give him anything for pain. The patient had taken an oxycodone that he had left from a prior kidney stone this morning which relieved the pain. He states since that is wearing off he has increased pain across the entire lower abdomen. The patient denies any hematochezia or melena. Review of Systems 10 system review was performed and was negative unless stated otherwise history of present illness. Past Medical/Surgical History Medical Problems: (1) Asthma (2) Kidney stones Family History Diabetes mellitus FH: cancer Hypertension Social History Smoking Status: Never Smoker Alcohol Use: none Marital Status: Housing Status: lives with family Occupation Status: employed Current/Historical Medications Scheduled Budesonide (Inhalation) (Budesonide), 1 MG NEB PRN Ranitidine Hcl (Zantac), 300 MG PO HS Scheduled PRN Albuterol Hfa (Ventolin Hfa), 2 PUFFS INH Q6H PRN for Shortness of Breath Physical Exam Vital Signs Date Time Temp Pulse Resp B/P (MAP) Pulse Ox O2 Delivery O2 Flow Rate FiO2 08/19/17 17:40 88 18 125/80 Room Air 08/19/17 16:42 37.2 103 20 155/98 96 Room Air Physical Exam GENERAL: 41-year-old white male appears in no acute distress. MENTAL Status: Alert and oriented 3. MOUTH: Mucosa is moist NECK: Supple, no lymphadenopathy noted. No carotid bruits noted. LUNGS: Clear auscultation without wheezes rales or rhonchi. CARDIAC: Regular rate and rhythm without murmur. Pulses is full and equal throughout. BACK: No CVA tenderness noted. ABDOMEN: Positive bowel sounds all 4 quadrants. Soft, mild tenderness palpation over the entire lower abdomen upper and lower abdomen is nontender to palpation without organomegaly or masses. EXTREMITIES: No cyanosis or edema noted. Medical Decision & Procedures ER Provider Diagnostic Interpretation: CT SCAN OF THE ABDOMEN AND PELVIS WITH IV CONTRAST CLINICAL HISTORY: Generalized abdominal pain. COMPARISON STUDY: Abdominal CT dated 12/31/2016. TECHNIQUE: Following the IV administration of 94 cc of Optiray 320, CT scan of the abdomen and pelvis is performed from the lung bases to the proximal femora. Images are reviewed in the axial, sagittal, and coronal planes. IV contrast was administered without complication. A dose lowering technique was utilized adhering to the principles of ALARA. CT DOSE: 476.82 mGy.cm FINDINGS: Lung bases: The heart is normal in size and without pericardial effusion. The lung bases are clear. There is a tiny hiatal hernia. Liver: The contrast-enhanced liver is normal in size, contour, and attenuation. There is no intrahepatic biliary ductal dilatation. The hepatic veins and portal veins are patent. Gallbladder: Unremarkable. Spleen: Normal in size and attenuation. Pancreas: Unremarkable. Adrenal glands: Unremarkable. Kidneys: The contrast enhanced kidneys are normal in size and without hydronephrosis. The kidneys enhance symmetrically. There is a 3 mm nonobstructing right renal calculus. Abdominal vasculature: The abdominal aorta is normal in course and caliber. Bowel: There is mild sigmoid diverticulosis. There is significant wall thickening with pericolonic inflammation and fluid identified around the proximal sigmoid colon in the upper pelvis consistent with acute diverticulitis. There is no organized fluid collection seen to suggest abscess. This is best seen on axial image #302. No bowel obstruction is seen. The appendix is well-visualized and normal. Peritoneum: There is no intraperitoneal free air or abdominal ascites. There is a small fat-containing umbilical hernia. Lymphadenopathy: None. Pelvic viscera: The bladder, prostate, and seminal vesicles are normal as visualized. Skeletal structures: No lytic or blastic lesions are seen. IMPRESSION: 1. There is mild sigmoid diverticulosis with evidence of acute sigmoid diverticulitis. No intraperitoneal free air is identified and there is no evidence of abscess. 2. Nonobstructing right renal calculus. Electronically signed by: Steven Jean Baptiste M.D. 08/19/2017 6:26 PM Laboratory Results 08/19/17 16:45 Red Blood Count 4.54, Mean Corpuscular Volume 90.5, Mean Corpuscular Hemoglobin 31.1, Mean Corpuscular Hemoglobin Concent 34.3, Mean Platelet Volume 11.2, Neutrophils (%) (Auto) 72.0, Lymphocytes (%) (Auto) 12.8, Monocytes (%) (Auto) 14.6, Eosinophils (%) (Auto) 0.2, Basophils (%) (Auto) 0.2, Neutrophils # (Auto ) 9.31, Lymphocytes # (Auto) 1.66, Monocytes # (Auto) 1.89, Eosinophils # (Auto ) 0.03, Basophils # (Auto) 0.03 08/19/17 16:45 Test 08/19/17 16:45 White Blood Count 12.95 K/uL (4.8-10.8) Red Blood Count 4.54 M/uL (4.7-6.1) Hemoglobin 14.1 g/dL (14.0-18.0) Hematocrit 41.1 % (42-52) Mean Corpuscular Volume 90.5 fL (80-100) Mean Corpuscular Hemoglobin 31.1 pg (25-34) Mean Corpuscular Hemoglobin Concent 34.3 g/dl (32-36) Platelet Count 195 K/uL (130-400) Mean Platelet Volume 11.2 fL (7.4-10.4) Neutrophils (%) (Auto) 72.0 % Lymphocytes (%) (Auto) 12.8 % Monocytes (%) (Auto) 14.6 % Eosinophils (%) (Auto) 0.2 % Basophils (%) (Auto) 0.2 % Neutrophils # (Auto) 9.31 K/uL (1.4-6.5) Lymphocytes # (Auto) 1.66 K/uL (1.2-3.4) Monocytes # (Auto) 1.89 K/uL (0.11-0.59) Eosinophils # (Auto) 0.03 K/uL (0-0.5) Basophils # (Auto) 0.03 K/uL (0-0.2) RDW Standard Deviation 46.0 fL (36.4-46.3) RDW Coefficient of Variation 13.8 % (11.5-14.5) Immature Granulocyte % (Auto) 0.2 % Immature Granulocyte # (Auto) 0.03 K/uL (0.00-0.02) Anion Gap 7.0 mmol/L (3-11) Est Creatinine Clear Calc Drug Dose 90.1 ml/min Estimated GFR () 93.7 Estimated GFR (Non- 80.9 BUN/Creatinine Ratio 13.0 (10-20) Calcium Level 8.8 mg/dl (8.5-10.1) Total Bilirubin 1.6 mg/dl (0.2-1) Direct Bilirubin 0.2 mg/dl (0-0.2) Aspartate Amino Transf (AST/SGOT) 15 U/L (15-37) Alanine Aminotransferase (ALT/SGPT) 27 U/L (12-78) Alkaline Phosphatase 104 U/L (45-117) Total Protein 7.9 gm/dl (6.4-8.2) Albumin 3.8 gm/dl (3.4-5.0) Lipase 132 U/L (73-393) Medications Administered Medications (Trade) Dose Ordered Sig/Ramírez Route Start Time Stop Time Status Last Admin Dose Admin Acetaminophen (Ofirmev Iv) 1,000 mg STK-MED ONCE IV 08/19/17 17:05 08/19/17 17:06 DC 08/19/17 17:09 1,000 MG ED Course The patient was evaluated. The patient's EMR medication list were reviewed. The EMS informed the nurse that the patient walked out to the ambulance in no acute distress when he went to pick him up. The patient's had also called the EMS earlier and stated that if they would call EMS and the patient was brought to the emergency room would he get his medications sooner. She then called back within minutes requesting an ambulance to bring her to the ER. IV access was obtained. The patient was given Tylenol 1 g IV for pain. CBC and differential, renal profile, LFTs and lipase levels were ordered. CT with IV contrast only was ordered and interpreted by the radiologist as above with evidence of sigmoid diverticulosis but no evidence of acute diverticulitis. No other acute findings noted.. Labs are reviewed. The patient's white count was slightly elevated at 12,000. Remainder labs are unremarkable. The patient was informed of the findings and discharged home in stable condition. Medical Decision Differential diagnosis include inflammatory bowel disease, colitis, diverticulitis, acute appendicitis [place] Drug Monitoring Program Search Results: patient reviewed within database Medication Reconcilliation Current Medication List: was personally reviewed by me Blood Pressure Screening Patient's blood pressure: Normal blood pressure Impression Primary Impression: Lower abdominal pain Departure Information Dispostion Home / Self-Care Condition GOOD Referrals Sunday Lauren III, M.D. (PCP) Forms Call Back Authorization, HOME CARE DOCUMENTATION FORM, IMPORTANT VISIT INFORMATION Patient Instructions Abdominal Pain - [facility], [facility] Additional Instructions Continue antibiotics as prescribed by Dr. Villegas. Tylenol as needed for pain. If symptoms persist or worsen, follow-up with Dr. Villegas.
[2017-08-19 18:57] VITALS: BP 125/80; PULSE 88; O2SAT 96
== END 2017-08-19 18:57 | disposition home or self-care (01) ==
LOC: EDBD 16:35 → C.EDD 16:36
DX: R10.30 Lower abdominal pain, unspecified (principal); K57.90 Diverticulosis of intestine, part unspecified, without perforation or abscess without bleeding; J45.909 Unspecified asthma, uncomplicated; Z87.442 Personal history of urinary calculi; Z83.3 Family history of diabetes mellitus; Z80.9 Family history of malignant neoplasm, unspecified; Z82.49 Family history of ischemic heart disease and other diseases of the circulatory system; Z79.899 Other long term (current) drug therapy

== ENCOUNTER 2017-10-08 17:40 | Emergency (ER) | payer OTHER ==
[~2017-10-08] VITALS: Ht 170.2 cm; Wt 83.6 kg
[~2017-10-08 17:40] MED LIST changes: +BUDE1SUS6 NEB; -DICY1TAB25 PO
[2017-10-08 17:47] VITALS: TEMP 36.7; Ht 170.2 cm; Wt 83.6 kg
[2017-10-08] MEDS ORDERED: SODIUM CHLORIDE 0.9% 1000ML 1,000 ML IV STA (18:17)
[2017-10-08] MEDS ORDERED: ONDANSETRON INJ 2 MG/ML 2 ML VIAL IV STA (18:17)
[2017-10-08] MEDS ORDERED: MoRPHine SULFATE 4 MG/ML 1 ML CARP\\VIAL IV STA (18:17)
[2017-10-08] MEDS ORDERED: LANS30CA41 PO (18:29)
[2017-10-08] MEDS ORDERED: OPTIRAY 320 IV PRN (18:30)
[2017-10-08 19:08] LABS: BASO % 0.1 %; BASO ABS # 0.01 K/uL (0-0.2); EOS % 0.2 %; EOS ABS # 0.02 K/uL (0-0.5); HEMATOCRIT 40.2 % (42-52); HEMOGLOBIN 14.1 g/dL (14.0-18.0); IG# 0.01 K/uL (0.00-0.02); LYMPH % 15.3 %; LYMPH ABS # 1.34 K/uL (1.2-3.4); MEAN CELL VOLUME 88.4 fL (80-100); MEAN CORPUSCULAR HGB CONC 35.1 g/dl (32-36); MEAN PLATELET VOLUME 11.2 fL (7.4-10.4); MONO % 16.3 %; MONO ABS # 1.43 K/uL (0.11-0.59); NEUT ABS # 5.95 K/uL (1.4-6.5); PLATELET COUNT 177 K/uL (130-400); RED CELL DISTRIBUTION WIDTH CV 13.6 % (11.5-14.5); WHITE BLOOD COUNT 8.76 K/uL (4.8-10.8)
[2017-10-08 19:27] LABS: ALBUMIN 3.8 gm/dl (3.4-5.0); CALCIUM 8.6 mg/dl (8.5-10.1); CREATININE 1.11 mg/dl (0.60-1.40); POTASSIUM 3.9 mmol/L (3.5-5.1)
--- NOTE | 2017-10-08 19:35 | DIAGNOSTIC IMAGING REPORT ---
ABDOMEN 2VIEW W/PA CHEST RTN HISTORY: 41 years-old Male EVAL ABD PAIN acute generalized abdominal pain COMPARISON: CT abdomen and pelvis 08/19/2017, chest radiograph 08/12/2016 TECHNIQUE: PA view of the chest with erect and supine views of the abdomen FINDINGS: Cardiomediastinal and hilar silhouettes are within normal limits. There is no pneumothorax, pleural effusion, focal airspace consolidation or overt pulmonary edema. Bones of the chest appear grossly intact. No pneumoperitoneum on the upright projection. Bowel gas pattern is nonobstructive. Moderate stool volume of the right hemicolon. There are a few small bowel air-fluid levels of the central abdomen. No urolith or acute fracture identified. Mild levoscoliosis of the lumbar spine. IMPRESSION: 1. No acute process of the chest. 2. Nonobstructive bowel gas pattern without pneumoperitoneum. 3. A few small bowel air-fluid levels of the central abdomen may reflect enteritis or ileus. The above report was generated using voice recognition software. It may contain grammatical, syntax or spelling errors. Electronically signed by: Shmuel Harrell M.D. 10/08/2017 7:33 PM Dictated Date/Time: 10/08/2017 7:32 PM
--- NOTE | 2017-10-08 20:45 | DIAGNOSTIC IMAGING REPORT ---
ABDOMEN AND PELVIS CT WITH IV CONTRAST CT DOSE: 915.13 mGycm HISTORY: Acute generalized abdominal pain constipation EVAL ABD PAIN TECHNIQUE: Multiaxial CT images of the abdomen and pelvis were performed following the use of intravenous contrast. A dose lowering technique was utilized adhering to the principles of ALARA. COMPARISON STUDY: Acute abdominal series radiographs of same day, CT abdomen and pelvis 08/19/2017. FINDINGS: Lung bases are generally clear. There is no pneumatosis or pneumoperitoneum. Imaged inferior cardiac chambers are unremarkable. Ill-defined 5 mm low attenuating lesion of the posterior right hepatic lobe is too small to characterize however statistically would favor a benign etiology such as a cyst or hemangioma. The liver is otherwise unremarkable. No intrahepatic biliary ductal dilation. The spleen, gallbladder, pancreas and adrenal glands are within normal limits. Minimal nonspecific bilateral perinephric stranding. Nonobstructing 3 mm calculus of the interpolar right kidney. No ureteral calculi or obstructive uropathy. Decompressed urinary bladder lumen. Prostate is unremarkable. No aortic aneurysm or bulky adenopathy. No bowel obstruction. A few air-fluid levels are noted within nondilated small bowel the central abdomen suggesting ileus. There is moderate wall thickening with mucosal hyperemia involving the mid sigmoid colon centered about the inflamed diverticulum seen on image 270 series 3. Moderate pericolonic inflammatory changes are seen tracking along the retroperitoneum. No abscess or perforation. Fluid-filled terminal ileum. Normal appendix. Soft tissues are unremarkable. Bones appear intact. Small posterior disc bulge L5-S1. IMPRESSION: 1. Acute uncomplicated sigmoid diverticulitis without evidence of perforation or abscess. Mild associated small bowel ileus. 2. Normal appendix. 3. 3 mm nonobstructing calculus of the interpolar right kidney. Electronically signed by: Shmuel Harrell M.D. 10/08/2017 8:43 PM Dictated Date/Time: 10/08/2017 8:30 PM
[2017-10-08 21:25] VITALS: BP 131/82; PULSE 86; O2SAT 98
[2017-10-08] MEDS ORDERED: METRONIDAZOLE 250 MG TAB PO STA (21:28)
[2017-10-08] MEDS ORDERED: CIPROFLOXACIN 500 MG TAB PO STA (21:28)
[2017-10-08] MEDS ORDERED: CIPR-255 PO (21:31)
[2017-10-08] MEDS ORDERED: METR-163 PO (21:31)
[2017-10-08] MEDS ORDERED: ONDA4TAB10 SL (21:31)
[2017-10-08] MEDS ORDERED: OXYC1TAB3 PO (21:31)
--- NOTE | 2017-10-08 21:32 | EMERGENCY ROOM VISIT NOTE ---
History First contact with patient: 17:52 Chief Complaint: ABDOMINAL PAIN Stated Complaint: LOWER TUMMY PAIN Nursing Triage Summary: pt c/o abd pain and constipation starting today. pt recently finished antibiotics for divertic. History of Present Illness Patient is a 41-year-old male with past medical history significant for diverticulosis/diverticulitis, IBS, and kidney stones, who presents emergency department for evaluation of lower abdominal pain. He states his symptoms started last evening around 8:00. He describes it as a dull aching pain across the entire lower abdomen that wraps around to his left back slightly. He had leftover pain medications from prior kidney stones which he did take last night which helped with his discomfort, he presently rates his pain a 5/10. He denies any associated nausea, vomiting, diarrhea, melena or hematochezia. He denies any urinary symptoms. He states this does not feel like his kidney stone pain. He contacted his GI doctor and they were unable to see him and referred him to the emergency department. The patient was treated with Augmentin for presumed diverticulitis, he finished this about a week ago. He also started a FODMAP diet for his IBS around the same time. This has led to some constipation. He reports that his last bowel movement was 1-1/2 days ago, and was diarrhea. His abdomen feels bloated. He states that he had a fever of 101F orally last evening. Review of Systems Review of systems as per HPI. All other systems reviewed were negative. 10 systems reviewed. Past Medical/Surgical History Medical Problems: (1) Abdominal pain (2) Asthma (3) Colitis (4) Diverticulitis (5) Diverticulitis (6) Dysuria (7) Flank pain (8) Generalized abdominal pain (9) IBS (irritable bowel syndrome) (10) Kidney stones (11) Lower abdominal pain (12) Substernal precordial chest pain Electronic medical records are reviewed and summarized as above/below. See Problem List. Family History Diabetes mellitus FH: cancer Hypertension Social History Smoking Status: Never Smoker Alcohol Use: none Marital Status: Housing Status: lives with family Occupation Status: employed Current/Historical Medications Scheduled Budesonide (Inhalation) (Budesonide), 1 MG NEB PRN Ciprofloxacin Hcl (Cipro), 500 MG PO BID Lansoprazole (Prevacid), 30 MG PO DAILY Metronidazole (Flagyl), 500 MG PO BID Ranitidine Hcl (Zantac), 300 MG PO HS Scheduled PRN Albuterol Hfa (Ventolin Hfa), 2 PUFFS INH Q6H PRN for Shortness of Breath Ondasetron Odt (Zofran Odt), 4 MG SL Q4 PRN for Nausea or Vomiting Oxycodone Immediate Rel Tab (Roxicodone Ir), 1-2 TAB PO Q4H PRN for Severe Pain Physical Exam Vital Signs Date Time Temp Pulse Resp B/P (MAP) Pulse Ox O2 Delivery O2 Flow Rate FiO2 10/08/17 21:25 86 18 131/82 98 Room Air 10/08/17 21:02 78 18 136/77 98 Room Air 10/08/17 17:47 36.7 97 18 124/79 99 Room Air Physical Exam CONSTITUTIONAL: Patient is a well-appearing 41-year-old male who is awake and alert and in no acute distress. EYES: Pupils equal, round, reactive to light and accommodation. EOMs intact without nystagmus. Sclera are anicteric. ENT: Tympanic membranes intact, with normal landmarks. External canals are clear. Oral and nasopharynx are clear. Mucous membranes are moist, no lesions , tongue and gums appear normal. NECK: No bruits auscultated. Supple without lymphadenopathy. No thyromegaly. No meningeal signs. Full active range of motion without discomfort. CARDIOVASCULAR: Regular rate and rhythm, with normal S1 and S2, no murmur or gallop or rub is heard. No carotid bruits auscultated. No JVD. Peripheral pulses easily palpable. RESPIRATORY: Breath sounds equal and clear to auscultation without wheezes, rales, or rhonchi heard. Full and equal chest expansion without accessory muscle use or retractions. ABDOMEN: Bowel sounds are present. Abdomen is soft, slightly distended, tympanic to percussion throughout, with tenderness in the right lower quadrant, suprapubic and left lower quadrant. No guarding, rebound or rigidity. INTEGUMENTARY: No lesions or rash, normal skin turgor. LYMPH: No lymphadenopathy. Medical Decision & Procedures ER Provider Diagnostic Interpretation: ABDOMEN AND PELVIS CT WITH IV CONTRAST CT DOSE: 915.13 mGycm HISTORY: Acute generalized abdominal pain constipation EVAL ABD PAIN TECHNIQUE: Multiaxial CT images of the abdomen and pelvis were performed following the use of intravenous contrast. A dose lowering technique was utilized adhering to the principles of ALARA. COMPARISON STUDY: Acute abdominal series radiographs of same day, CT abdomen and pelvis 08/19/2017. FINDINGS: Lung bases are generally clear. There is no pneumatosis or pneumoperitoneum. Imaged inferior cardiac chambers are unremarkable. Ill-defined 5 mm low attenuating lesion of the posterior right hepatic lobe is too small to characterize however statistically would favor a benign etiology such as a cyst or hemangioma. The liver is otherwise unremarkable. No intrahepatic biliary ductal dilation. The spleen, gallbladder, pancreas and adrenal glands are within normal limits. Minimal nonspecific bilateral perinephric stranding. Nonobstructing 3 mm calculus of the interpolar right kidney. No ureteral calculi or obstructive uropathy. Decompressed urinary bladder lumen. Prostate is unremarkable. No aortic aneurysm or bulky adenopathy. No bowel obstruction. A few air-fluid levels are noted within nondilated small bowel the central abdomen suggesting ileus. There is moderate wall thickening with mucosal hyperemia involving the mid sigmoid colon centered about the inflamed diverticulum seen on image 270 series 3. Moderate pericolonic inflammatory changes are seen tracking along the retroperitoneum. No abscess or perforation. Fluid-filled terminal ileum. Normal appendix. Soft tissues are unremarkable. Bones appear intact. Small posterior disc bulge L5-S1. IMPRESSION: 1. Acute uncomplicated sigmoid diverticulitis without evidence of perforation or abscess. Mild associated small bowel ileus. 2. Normal appendix. 3. 3 mm nonobstructing calculus of the interpolar right kidney. ABDOMEN 2VIEW W/PA CHEST RTN HISTORY: 41 years-old Male EVAL ABD PAIN acute generalized abdominal pain COMPARISON: CT abdomen and pelvis 08/19/2017, chest radiograph 08/12/2016 TECHNIQUE: PA view of the chest with erect and supine views of the abdomen FINDINGS: Cardiomediastinal and hilar silhouettes are within normal limits. There is no pneumothorax, pleural effusion, focal airspace consolidation or overt pulmonary edema. Bones of the chest appear grossly intact. No pneumoperitoneum on the upright projection. Bowel gas pattern is nonobstructive. Moderate stool volume of the right hemicolon. There are a few small bowel air-fluid levels of the central abdomen. No urolith or acute fracture identified. Mild levoscoliosis of the lumbar spine. IMPRESSION: 1. No acute process of the chest. 2. Nonobstructive bowel gas pattern without pneumoperitoneum. 3. A few small bowel air-fluid levels of the central abdomen may reflect enteritis or ileus. Laboratory Results 10/08/17 18:51 Red Blood Count 4.55, Mean Corpuscular Volume 88.4, Mean Corpuscular Hemoglobin 31.0, Mean Corpuscular Hemoglobin Concent 35.1, Mean Platelet Volume 11.2, Neutrophils (%) (Auto) 68.0, Lymphocytes (%) (Auto) 15.3, Monocytes (%) (Auto) 16.3, Eosinophils (%) (Auto) 0.2, Basophils (%) (Auto) 0.1, Neutrophils # (Auto ) 5.95, Lymphocytes # (Auto) 1.34, Monocytes # (Auto) 1.43, Eosinophils # (Auto ) 0.02, Basophils # (Auto) 0.01 10/08/17 18:51 Test 10/08/17 18:51 White Blood Count 8.76 K/uL (4.8-10.8) Red Blood Count 4.55 M/uL (4.7-6.1) Hemoglobin 14.1 g/dL (14.0-18.0) Hematocrit 40.2 % (42-52) Mean Corpuscular Volume 88.4 fL (80-100) Mean Corpuscular Hemoglobin 31.0 pg (25-34) Mean Corpuscular Hemoglobin Concent 35.1 g/dl (32-36) Platelet Count 177 K/uL (130-400) Mean Platelet Volume 11.2 fL (7.4-10.4) Neutrophils (%) (Auto) 68.0 % Lymphocytes (%) (Auto) 15.3 % Monocytes (%) (Auto) 16.3 % Eosinophils (%) (Auto) 0.2 % Basophils (%) (Auto) 0.1 % Neutrophils # (Auto) 5.95 K/uL (1.4-6.5) Lymphocytes # (Auto) 1.34 K/uL (1.2-3.4) Monocytes # (Auto) 1.43 K/uL (0.11-0.59) Eosinophils # (Auto) 0.02 K/uL (0-0.5) Basophils # (Auto) 0.01 K/uL (0-0.2) RDW Standard Deviation 44.0 fL (36.4-46.3) RDW Coefficient of Variation 13.6 % (11.5-14.5) Immature Granulocyte % (Auto) 0.1 % Immature Granulocyte # (Auto) 0.01 K/uL (0.00-0.02) Urine Color DK YELLOW Urine Appearance CLEAR (CLEAR) Urine pH 5.0 (4.5-7.5) Urine Specific [place] 1.025 (1.000-1.030) Urine Protein NEG (NEG) Urine Glucose (UA) NEG (NEG) Urine Ketones 3+ (NEG) Urine Occult Blood NEG (NEG) Urine Nitrite NEG (NEG) Urine Bilirubin NEG (NEG) Urine Urobilinogen NEG (NEG) Urine Leukocyte Esterase NEG (NEG) Anion Gap 5.0 mmol/L (3-11) Est Creatinine Clear Calc Drug Dose 91.5 ml/min Estimated GFR () 95.8 Estimated GFR (Non- 82.6 BUN/Creatinine Ratio 10.9 (10-20) Calcium Level 8.6 mg/dl (8.5-10.1) Total Bilirubin 1.6 mg/dl (0.2-1) Aspartate Amino Transf (AST/SGOT) 15 U/L (15-37) Alanine Aminotransferase (ALT/SGPT) 19 U/L (12-78) Alkaline Phosphatase 92 U/L (45-117) Total Protein 8.0 gm/dl (6.4-8.2) Albumin 3.8 gm/dl (3.4-5.0) Globulin 4.2 gm/dl (2.5-4.0) Albumin/Globulin Ratio 0.9 (0.9-2) Medications Administered Medications (Trade) Dose Ordered Sig/Ramírez Route Start Time Stop Time Status Last Admin Dose Admin Sodium Chloride 1,000 ml @ 250 mls/hr Q4H STAT IV 10/08/17 18:17 10/08/17 21:56 DC 10/08/17 19:07 250 MLS/HR Ondansetron HCl (Zofran Inj) 4 mg NOW STAT IV 10/08/17 18:17 10/08/17 18:27 DC 10/08/17 19:07 4 MG Morphine Sulfate (MoRPHine SULFATE INJ) 4 mg NOW STAT IV 10/08/17 18:17 10/08/17 18:27 DC 10/08/17 19:07 4 MG Ciprofloxacin (Cipro Tab) 500 mg NOW STAT PO 10/08/17 21:28 10/08/17 21:29 DC 10/08/17 21:34 500 MG Metronidazole (Flagyl Tab) 500 mg NOW STAT PO 10/08/17 21:28 10/08/17 21:29 DC 10/08/17 21:34 500 MG ED Course The patient was seen and assessed as above. His old records were reviewed. IV lock was initiated and he was hydrated with normal saline solution, he was medicated with Zofran and morphine IV. Laboratory studies were collected including CBC with differential, CMP and urinalysis. Laboratory studies noted a normal white count, 8700, no left shift or bandemia. H&H is normal. Electrolytes are without significant abnormality. Renal function is normal. He has slight elevation of his total bilirubin at 1.6, remainder of his LFTs are normal. He has had elevated bilirubin in the past. Urinalysis notes 3+ ketones, otherwise is clear. Acute abdominal series was obtained noting a non-obstructive bowel gas pattern without pneumoperitoneum. There were a few small bowel air-fluid levels in the central abdomen, possibly reflecting enteritis or ileus. Given the patient's history, CT scan of the abdomen and pelvis with IV contrast was ordered and was consistent with acute uncomplicated sigmoid diverticulitis, no evidence for perforation or abscess. There is mild associated small bowel ileus. Appendix is visualized and was normal. All laboratory and diagnostic imaging studies were reviewed with the patient and his . He has another episode of acute diverticulitis. He was just recently treated with Augmentin for a presumptive diverticulitis a couple of weeks ago. He is otherwise afebrile, tolerating oral intake and after discussing with the patient, he would like to go home. This is reasonable given his current condition. He will be placed on Cipro and Flagyl and was given the first doses here in the emergency department. He was provided prescriptions for Zofran and oxycodone as well. 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 He was educated on the worrisome signs or symptoms for which she should return to the emergency department. Patient was discharged home in good condition, he rated his discomfort a 2/10 at discharge. Differential diagnoses entertained included UTI, pyelonephritis, renal colic, diverticulitis, abscess, perforation, bowel obstruction, IBS flare, shingles, musculoskeletal pain, among others. Medical Decision See emergency department course. [place] Drug Monitoring Program Search Results: patient reviewed within database, no issues identified Medication Reconcilliation Current Medication List: was personally reviewed by me Blood Pressure Screening Patient's blood pressure: Normal blood pressure Blood pressure disposition: Did not require urgent referral Impression Primary Impression: Diverticulitis Departure Information Prescriptions Ondasetron Odt (ZOFRAN ODT) 4 Mg Tab 4 MG SL Q4 Y for Nausea or Vomiting, #20 TAB Prov: Kelly Mishra PA 10/08/17 Oxycodone Immediate Rel Tab (ROXICODONE IR) 5 Mg Tab 1-2 TAB PO Q4H Y for Severe Pain, #20 TAB For Initial Treatment Prov: Kelly Mishra PA 10/08/17 Metronidazole (Flagyl) 500 Mg Tab 500 MG PO BID, #20 TAB Prov: Kelly Mishra PA 10/08/17 Ciprofloxacin Hcl (CIPRO) 500 Mg Tab 500 MG PO BID, #20 TAB Prov: Kelly Mishra PA 10/08/17 Referrals Sunday Lauren III, M.D. (PCP) Patient Instructions My [facility] [address] Additional Instructions DO NOT drive, drink alcohol, operate machinery, or perform dangerous activities today. You were given medications in the ER that can affect your ability to safely function or operate a vehicle. Ciprofloxacin(Cipro) 500mg: Take one pill twice daily for 10 days for your bowel infection. All antibiotics can cause diarrhea. If this occurs and you feel worse or it does not resolve in 1-2 days follow up with your doctor or return to the Emergency Department as this could be signs of serious underlying problems. If you experience any pain in your tendons/joints or any tendon injury return to the ER for re-evaluation. Any medication can cause an allergic reaction, stop the pills immediately and return to the ER for rash, hives, breathing difficulties, or swelling. Metronidazole(Flagyl) 500mg: Take one pill twice daily for 10 days for your bowel infection. DO NOT drink alcohol or take alcohol containing products with this medication. Any medication can cause an allergic reaction, stop the pills immediately and return to the ER for rash, hives, breathing difficulties, or swelling. Oxycodone (OxyIR) 5mg: Take 1-2 pills every four hours as needed for breakthrough pain. Avoid alcohol, operating machinery or dangerous equipment, working on ladders or roofs, DRIVING, making important decisions, or situations where being under the influence may be dangerous. It is recommended to use an [id number] stool softener such as Colace, 100mg twice daily while taking this medication to avoid constipation. Ibuprofen(Motrin, Advil) may be used for fever or pain. Use 600mg every six hours as needed. Take with food. Avoid using more than 2400mg in a 24 hour period. Do not use 2400mg per day for more than three consecutive days without physician direction. Prolonged inappropriate use can lead to stomach upset or ulcers. This is available over the counter and typically comes in 200mg tablets. (AND/OR) Acetaminophen(Tylenol) may be used for fever or pain. Use 1000mg every eight hours as needed. Avoid using more than 3000mg in a 24 hour period. This is available over the counter. Zofran(odansetron) tablets 4mg: Take one and allow it to dissolve in your mouth every four hours as needed for nausea or vomiting. Read all the package inserts or medication information paperwork provided. If you have any questions or concerns call your primary provider, pharmacist or the ER for assistance. Rest and drink plenty of fluids as tolerated. Slow sips of water or sports drinks are recommended instead of large amounts all at once. Continue current medications. Once your stomach is settled start with a clear liquid diet (jello, soup broth, etc.) and then advance as tolerated. You should avoid full, heavy meals for about 24 hrs from the time your symptoms resolved. Return to the ER immediately for worsening or persistent abdominal pain, vomiting, fevers, chest pains, difficulty breathing, black or bloody stools, worsening of your condition, or as needed. Follow up with your primary physician in 2-3 days for a recheck of your current condition.
== END 2017-10-08 21:44 | disposition home or self-care (01) ==
LOC: C.EDB 17:41 → C.EDA 21:44
DX: K57.92 Diverticulitis of intestine, part unspecified, without perforation or abscess without bleeding (principal); K58.9 Irritable bowel syndrome, unspecified; M54.9 Dorsalgia, unspecified; J45.909 Unspecified asthma, uncomplicated; Z79.899 Other long term (current) drug therapy